=== PATIENT | female | born 1975 | race Two or more races ===

== ENCOUNTER 2020-12-07 00:15 | Emergency (ER) | payer OTHER, SELFPAY ==
[2020-12-07 00:45] VITALS: BP 135/89; PULSE 68; RESP 16; TEMP 36.1; O2SAT 69; BMI 40.7
--- NOTE | 2020-12-07 01:44 | ED.ALLEREA ---
HPI - Allergic Reaction General Chief complaint: Allergic Reaction Stated complaint: rash Time Seen by Provider: 12/07/20 01:28 Source: patient Mode of arrival: ambulatory Limitations: no limitations History of Present Illness HPI narrative: Patient is a 45-year-old female with no significant past medical history who presents with an itchy rash on her lower abdomen and upper left leg x3 days. She states the rash started yesterday morning when she woke up, she states she went to her PCP who gave her 40 mg of prednisone to take each day. She states she took the medication yesterday and today with no relief and states the rash is now spreading. She denies any tingling in her throat shortness of breath. she denies any new detergents lotions soaps clothing or sunscreen. she denies fevers. She states she took Benadryl on the 1st day but stopped taking it once her doctor prescribed prednisone. Related Data Previous Rx's Medication Instructions Recorded hydroxyzine HCl 25 mg PO TID PRN #20 tab 12/07/20 prednisone 50 mg PO DAILY 2 Days #2 tab 12/07/20 Allergies Allergy/AdvReac Type Severity Reaction Status Date / Time No Known Allergies Allergy Verified 12/07/20 00:45 Review of Systems Review of Systems: Yes all other systems are reviewed and are negative [facility] Past Medical History Surgical History H/O: hysterectomy Social History Social History Advance Directives: No Advance Directives Information Provided: No Physical Exam Vital Signs: Vital Signs: Last Vital Signs Temp 97 F 12/07/20 00:45 Pulse 68 12/07/20 00:45 Resp 16 12/07/20 00:45 BP 135/89 12/07/20 00:45 Pulse Ox 69 L 12/07/20 00:45 Body Mass Index 40.7 Const: General: cooperative, healthy appearing, comfortable and no acute distress Nutritional Appearance: average body habitus Orientation/consciousness: patient oriented x3 Eyes: General: appearance normal, both eyes and all related structures Resp: Effort & Inspection: normal respiratory effort and able to speak in complete sentences Auscultation: clear to auscultation bilaterally Skin: Other: large erythematous urticarial rash, patchy in areas, over Left lower quadrant, left hip extending in to upper left thigh Neuro: General: patient oriented x3 Course Course Course Narrative: will give additional prednisone, dose of p.o. Benadryl, p.o. hydroxyzine and p.o. Pepcid then reassess. Patient states her come pick her up if necessary, as I advised these medications may make her very sleepy. Reevaluation(s) Reevaluation #1: Per Dr Gonzalez, medicate patient and discharge home. Time: 02:07 Discharge Plan Discharge Clinical Impression: Urticaria Patient Disposition: Home, Self-Care Instructions: Urticaria (ED) Additional Instructions: You can take Benadryl and Zantac both of which are [id number] antihistamines. I have sent prescriptions for 2 more days of prednisone plus an anti-itch medication, hydroxyzine to your pharmacy. I have included other information in this packet on instructions to manage your itchy rash. If you have any tingling in the back your throat, feel like your short of breath or her lips or throat start swelling, please call 911 or return to the emergency department. The Prescriptions: New prednisone 50 mg tablet 50 mg PO DAILY 2 Days Qty: 2 RF: 0 hydroxyzine HCl 25 mg tablet 25 mg PO TID PRN (Reason: itching) Qty: 20 RF: 0
[2020-12-07] MEDS: diphenhydrAMINE HCL 25 MG TABLET PO (02:10)
[2020-12-07] MEDS: hydrOXYzine HCL 25 MG TABLET PO (02:10)
[2020-12-07] MEDS: Famotidine 20 MG TABLET PO (02:10)
[2020-12-07] MEDS: predniSONE 20 MG TABLET PO (02:10)
== END 2020-12-07 02:45 | disposition home or self-care (01) ==
PROVIDERS: Emergency Provider Internal Medicine; PCP Internal Medicine
DX: L50.9 Urticaria, unspecified (principal)
CPT/HCPCS: 99283; Q0163

== ENCOUNTER 2021-07-27 23:28 | Emergency (ER) | payer OTHER, SELFPAY ==
[2021-07-27 23:55] VITALS: BP 143/85; PULSE 77; RESP 16; TEMP 36.7; O2SAT 99; BMI 34.3
== END 2021-07-28 02:39 | disposition left against medical advice (07) ==
PROVIDERS: Emergency Provider Emergency Medicine
DX: H57.12 Ocular pain, left eye (principal)
CPT/HCPCS: 99282

== ENCOUNTER 2022-05-31 00:40 | Inpatient (IN) | payer OTHER, SELFPAY ==
[2022-05-31 00:47] VITALS: BP 166/103; PULSE 95; RESP 20; TEMP 36.9; O2SAT 98; BMI 29.6
--- NOTE | 2022-05-31 01:03 | ED.GENADULT ---
HPI - General Adult General Chief complaint: General Medical Stated complaint: red stool, abdominal pain Time Seen by Provider: 05/31/22 00:55 Source: patient Mode of arrival: ambulatory Limitations: no limitations History of Present Illness HPI narrative: 46-year-old female came in for evaluation of abdominal pain and bleeding per rectum. Patient's symptoms started about a week ago was seen and evaluated by PCP patient was instructed to monitor her symptoms and if gets worse to rule seek medical attention, patient is here today because been having abdominal pain, decreased appetite, and bright red blood in the stool. No fever, no chills. History of sleeve gastrectomy and appendectomy. Related Data Previous Rx's Medication Instructions Recorded hydroxyzine HCl 25 mg tablet 25 mg PO TID PRN itching #20 tabs 12/07/20 prednisone 50 mg tablet 50 mg PO DAILY 2 days #2 tabs 12/07/20 Allergies Allergy/AdvReac Type Severity Reaction Status Date / Time No Known Allergies Allergy Verified 12/07/20 00:45 Review of Systems Review of Systems: All other systems are reviewed and are negative Constitutional: Reports as per HPI and Reports no additional constitutional complaints Eyes: Reports as per HPI and Reports no additional eye complaints Reports system reviewed and no additional complaints, except as documented Cardiovascular: Reports as per HPI and Reports no additional cardiovascular complaints Respiratory: Reports as per HPI and Reports no additional respiratory complaints Gastrointestinal: Reports as per HPI and Reports no additional gastrointestinal complaints Genitourinary: Reports no additional female genitourinary complaints Musculoskeletal: Reports no additional musculoskeletal complaints Skin/Breast: Reports system reviewed and no additional complaints, except as docu Psychiatric: Reports no additional psychiatric complaints Endocrine: Reports no additional endocrine complaints Hematologic/Lymphatic: Reports no additional hematologic/lymphatic complaints Allergic/Immunologic: Reports no additional allergic/immunologic complaints Reports system reviewed and no additional complaints, except as documented and Reports Abnormal speech present [facility] Past Medical History Surgical History H/O: hysterectomy Social History Social History Advance Directives: No Physical Exam ED Vital Signs: Vital Signs - 24 hr 05/31/22 00:47 05/31/22 02:08 Temperature 98.4 F Pulse Rate 95 81 Respiratory Rate 20 16 Blood Pressure 166/103 H 122/84 Pulse Oximetry 98 100 Oxygen Delivery Method Room Air Room Air BMI result Body Mass Index 29.6 Vital signs have been reviewed as appeared to be correct. Blood pressure normal. Heart rate normal. Respiration rate normal. Temperature normal. Oxygen saturation normal. Appearance: Alert. Oriented X3. No acute distress. Head: Normal external exam. Normocephalic. Atraumatic. No Sprague signs noted. No raccoon eyes noted Eyes: PERRLA. EOMI. Conjunctiva and sclera normal. Eyelids normal. ENT: TM's Normal. Pharynx normal. Uvula midline. Moist mucous membranes. No trismus noted. No drooling noted. No muffled voice noted. Neck: Normal inspection. Neck supple. FROM. No adenopathy. Thyroid Normal. No meningeal signs. No neck mass noted. CVS: Normal heart rate and rhythm. Heart sound normal. No murmurs noted. Pulses normal throughout. Respiratory: No respiratory distress. Painless inspiration. Breath sounds normal. No wheezes/rales/rhonchi noted. Chest nontender. No accessory muscle usage noted or decreased air movement noted. Abdomen: Soft, diffuse abdominal discomfort with no guarding or rebound tenderness.. Bowel sounds normal in all 4 quadrants. No distention noted. No organomegaly noted. No visible injury noted. Back: No CVA tenderness. Full range of motion noted. Rectal exam: Bright red blood and mucus in the vault. Skin: Skin warm and dry. Normal skin color. Normal skin turgor. No rashes/lesions/lacerations noted. Extremities: No lower extremity edema. Extremities exhibit normal range of motion. Extremities nontender. Neuro: Oriented X 3. Cranial nerve exam: II-XII are grossly intact No motor deficit. No sensory deficit. Reflexes normal. Course Course Course Narrative: 46-year-old female came in for evaluation of abdominal pain and bloody bowel movement CT of the abdomen and pelvis is consistent with harkins colitis. Start the patient on Flagyl and levofloxacin seen will give 1 dose of Solu-Medrol admit for further GI evaluation. Hypokalemia will replete potassium IV/p.o.. Mild elevation of BUN/ creatinine likely from the diarrhea will hydrate Medical Decision Making Differential Diagnosis Differential Diagnoses: The differential diagnosis associated with the presentation includes (Abdominal pain, gastroenteritis, colitis, hemorrhoid, complicated diverticular disease.) Admission/Observation Consideration of admission/observation: Escalation of care including admission/observation considered Consult Healthcare Provider Management of the patient was discussed with: Hospitalist Lab Data MDM Lab Attestation statement: I reviewed the patient's lab results. Result Diagrams: 05/31/22 01:07 05/31/22 01:07 Labs: Lab Results 05/31/22 05/31/22 05/31/22 Range/Units 01:07 01:07 01:07 WBC 5.4 (4.8-10.8) X10*3/uL RBC 4.78 (4.20-5.50) X10*6/uL Hgb 13.4 (12.0-16.0) g/dl Hct 40.1 (37.0-47.0) % MCV 83.9 (80.0-98.0) fL MCH 28.0 (27.0-33.0) pg MCHC 33.4 (31.0-35.0) g/dl RDW 13.4 (11.0-16.0) % Plt Count 187 (160-400) X10*3/uL MPV 11.0 (9.4-12.3) fL Immature Gran % (Auto) 0.6 H (0.0-0.4) % Neut % (Auto) 41.4 L (45-73) % Lymph % (Auto) 38.0 (20-40) % Ness % (Auto) 18.1 H (2-11) % Eos % (Auto) 1.3 (0-4) % Baso % (Auto) 0.6 (0-2) % Lymph # (Auto) 2.0 (1.2-4.9) X10*3/uL Ness # (Auto) 1.0 (0.1-1.2) X10*3/uL Eos # (Auto) 0.1 (0.0-0.4) X10*3/uL Baso # (Auto) 0.0 (0.0-0.2) X10*3/uL Abs Immat Gran (auto) 0.03 (0.00-0.03) X10*3/uL Absolute Neuts (auto) 2.2 (2.0-8.3) x10*3/uL Absolute Nucleated RBC 0.000 (0.0-0.012) X10*3/uL Nucleated RBC % (auto) 0.0 (0.0-0.2) /100WBC PT (10.0-13.1) SEC INR (0.9-1.1) APTT (26.0-36.4) SEC Sodium 138 (135-145) mmol/L Potassium 3.1 L (3.3-5.1) mmol/L Chloride 102 (96-108) mmol/L Carbon Dioxide 25 (22-29) mmol/L Anion Gap 14 (12-20) BUN 21 H (9-16) mg/dL Creatinine 1.79 H (0.5-1.4) mg/dL Estim Creat Clear Calc 37.4 Estimated GFR 30 Random Glucose 108 (60-115) mg/dL Calcium 9.2 (8.4-10.2) mg/dL Total Bilirubin 0.3 (0.0-1.0) mg/dL AST 67 H (5-31) U/L ALT 189 H (0-31) U/L Alkaline Phosphatase 164 H (39-117) U/L Total Protein 6.9 (6.5-8.0) g/dL Albumin 4.1 (3.5-5.0) g/dL Beta HCG, Quant 3 mIU/mL Urine Color Urine Appearance Urine pH (5.0-9.0) Ur Specific [place] (1.005-1.025) Urine Protein (Neg-Trace) mg/dL Urine Glucose (UA) (Negative) mg/dL Urine Ketones (Negative) mg/dL Urine Blood (Negative) Urine Nitrite (Negative) Ur Leukocyte Esterase (Negative) Urine RBC (0-2) /HPF Urine WBC (0-5) /HPF Ur Squamous Epith Cells (0-2) /HPF Urine Bacteria (None Seen) Hyaline Casts (0-2) /LPF Stool Occult Blood (NEGATIVE) Influenza Type A (PCR) NEGATIVE (Negative) Influenza Type B (PCR) NEGATIVE (Negative) RSV RNA Qual (PCR) NEGATIVE (Negative) SARS-CoV-2 RNA (RT-PCR) NEGATIVE (Negative) 05/31/22 05/31/22 05/31/22 Range/Units 01:07 01:07 02:34 WBC (4.8-10.8) X10*3/uL RBC (4.20-5.50) X10*6/uL Hgb (12.0-16.0) g/dl Hct (37.0-47.0) % MCV (80.0-98.0) fL MCH (27.0-33.0) pg MCHC (31.0-35.0) g/dl RDW (11.0-16.0) % Plt Count (160-400) X10*3/uL MPV (9.4-12.3) fL Immature Gran % (Auto) (0.0-0.4) % Neut % (Auto) (45-73) % Lymph % (Auto) (20-40) % Ness % (Auto) (2-11) % Eos % (Auto) (0-4) % Baso % (Auto) (0-2) % Lymph # (Auto) (1.2-4.9) X10*3/uL Ness # (Auto) (0.1-1.2) X10*3/uL Eos # (Auto) (0.0-0.4) X10*3/uL Baso # (Auto) (0.0-0.2) X10*3/uL Abs Immat Gran (auto) (0.00-0.03) X10*3/uL Absolute Neuts (auto) (2.0-8.3) x10*3/uL Absolute Nucleated RBC (0.0-0.012) X10*3/uL Nucleated RBC % (auto) (0.0-0.2) /100WBC PT 11.9 (10.0-13.1) SEC INR 1.0 (0.9-1.1) APTT 26.4 (26.0-36.4) SEC Sodium (135-145) mmol/L Potassium (3.3-5.1) mmol/L Chloride (96-108) mmol/L Carbon Dioxide (22-29) mmol/L Anion Gap (12-20) BUN (9-16) mg/dL Creatinine (0.5-1.4) mg/dL Estim Creat Clear Calc Estimated GFR Random Glucose (60-115) mg/dL Calcium (8.4-10.2) mg/dL Total Bilirubin (0.0-1.0) mg/dL AST (5-31) U/L ALT (0-31) U/L Alkaline Phosphatase (39-117) U/L Total Protein (6.5-8.0) g/dL Albumin (3.5-5.0) g/dL Beta HCG, Quant mIU/mL Urine Color Yellow Urine Appearance Clear Urine pH 5.5 (5.0-9.0) Ur Specific [place] 1.010 (1.005-1.025) Urine Protein 30 (1+) H (Neg-Trace) mg/dL Urine Glucose (UA) Negative (Negative) mg/dL Urine Ketones Negative (Negative) mg/dL Urine Blood Negative (Negative) Urine Nitrite Negative (Negative) Ur Leukocyte Esterase Negative (Negative) Urine RBC 0-2 (0-2) /HPF Urine WBC 6-10 H (0-5) /HPF Ur Squamous Epith Cells 0-2 (0-2) /HPF Urine Bacteria None Seen (None Seen) Hyaline Casts 3-5 (0-2) /LPF Stool Occult Blood NEGATIVE (NEGATIVE) Influenza Type A (PCR) (Negative) Influenza Type B (PCR) (Negative) RSV RNA Qual (PCR) (Negative) SARS-CoV-2 RNA (RT-PCR) (Negative) Radiology Impression Discussion of test interpretation with radiology: I have reviewed the radiologist's reading. Discharge Plan Discharge Clinical Impression: Colitis, Bright red rectal bleeding, Acute hypokalemia, Dehydration Patient Disposition: Admitted As Inpatient
[2022-05-31 01:13] LABS: MANUAL DIFF FLAG NO
[2022-05-31 01:15] LABS: Basophils Percent Auto 0.6 % (0-2); Eosinophils Absolute Auto 0.1 X10*3/uL (0.0-0.4); Eosinophils Percent Auto 1.3 % (0-4); Hematocrit 40.1 % (37.0-47.0); Hemoglobin 13.4 g/dl (12.0-16.0); Imm Gran Abs Auto 0.03 X10*3/uL (0.00-0.03); Imm Gran Pct Auto 0.6 % (0.0-0.4); Mean Corpuscular HGB Conc 33.4 g/dl (31.0-35.0); Mean Corpuscular Volume 83.9 fL (80.0-98.0); Monocytes Percent Auto 18.1 % (2-11); Neutrophils Absolute Auto 2.2 x10*3/uL (2.0-8.3); Neutrophils Percent Auto 41.4 % (45-73); Platelet Count 187 X10*3/uL (160-400); Red Blood Count 4.78 X10*6/uL (4.20-5.50); Red Cell Distribution Width 13.4 % (11.0-16.0); White Blood Count 5.4 X10*3/uL (4.8-10.8)
[2022-05-31 01:16] LABS: OBS Int Ctl Valid YES; OBS1 NEGATIVE (NEGATIVE)
[2022-05-31 01:20] LABS: Prothrombin Time 11.9 SEC (10.0-13.1)
[2022-05-31 01:23] LABS: Partial Thromboplastin Time 26.4 SEC (26.0-36.4)
[2022-05-31 01:31] LABS: Alanine Aminotransferase 189 U/L (0-31); Albumin Level 4.1 g/dL (3.5-5.0); Alkaline Phosphatase 164 U/L (39-117); Anion Gap 14 (12-20); Aspartate Amino Transferase 67 U/L (5-31); Bilirubin Total 0.3 mg/dL (0.0-1.0); Blood Urea Nitrogen 21 mg/dL (9-16); Calcium 9.2 mg/dL (8.4-10.2); Carbon Dioxide 25 mmol/L (22-29); Chloride 102 mmol/L (96-108); Creatinine Clr Calc Pharmacy 37.4; Estimated Glomerular Filt Rate 30; Glucose Random 108 mg/dL (60-115); Potassium 3.1 mmol/L (3.3-5.1); Sodium 138 mmol/L (135-145); Total Protein 6.9 g/dL (6.5-8.0)
[2022-05-31 01:51] LABS: Influenza A PCR NEGATIVE (Negative); Influenza B PCR NEGATIVE (Negative); Resp Syncy Virus RNA Qual PCR NEGATIVE (Negative); SARS COV2 PCR INHOUSE NEGATIVE (Negative)
[2022-05-31 01:59] LABS: HCG Quantitative 3 mIU/mL
[2022-05-31 02:08] VITALS: BP 122/84; PULSE 81; RESP 16; O2SAT 100
[2022-05-31 02:41] LABS: Appearance Urine Clear; Color Urine Yellow; Glucose Urine UA Negative (Negative); Leukocyte Esterase Urine Negative (Negative); Nitrite Urine Negative (Negative); PH 5.5 (5.0-9.0); UMIC TRIGGER UACC YES; Urine Blood Negative (Negative); Urine Ketones Negative (Negative); Urine Protein 30 (1+) mg/dL (Neg-Trace)
[2022-05-31 03:08] LABS: Bacteria Urine None Seen (None Seen); RBC Urine 0-2 /HPF (0-2); Squamous Epithelial Cell Urine 0-2 /HPF (0-2); UACC Culture Trigger YES
[2022-05-31 03:49] LABS: Lactic Acid 0.8 mmol/L (0.5-2.0)
[2022-05-31 05:21] VITALS: BP 122/85; PULSE 78; RESP 16; TEMP 36.8; O2SAT 98
--- NOTE | 2022-05-31 06:05 | PM.IMHP ---
History of Present Illness Date of Service: 05/31/22 Chief Complaint: abdominal pain, diarrhea this is a 38-year-old female with no significant past medical history who presents to the hospital with complaints of abdominal pain as well as significant diarrhea for the past 4 days. Patient reports that her symptoms started Wednesday, she had multiple episode of diarrhea that has now turned into watery bowel movements. Patient reports that today she noticed blood in in the diarrhea therefore was concerned and presented to the ED. Patient reports no fever but has chills, reports no nausea or vomiting, denies any urinary symptoms and no lower extremity edema. Patient reports a history of colitis in her sister. Reports no previous similar episode. Denies any history of inflammatory bowel disease. patient reports that she underwent colonoscopy about 5 months ago because she has family history of colon cancer, at that time her colonoscopy showed mild inflammation with no other significant findings On arrival to the ED patient hemodynamically stable with no significant abnormal vitals except slightly elevated blood pressure that not normalize Labs are significant for WBC count of 5.4, creatinine of 1.79, AST of 67, ALT of 189, alk-phos of 164, UA negative for acute infection, viral serology negative Abdominal pelvic CT shows thick-walled appearance of the collapse ascending descending and transverse colon with surrounding stranding suspicious for pancolitis. There also may be mild thickening of the sigmoid colon. Review of Systems Review of Systems: Yes all other systems are reviewed and are negative [facility] Surgical History (Updated 05/31/22 @ 06:12 by Craig Posadas MD) H/O abdominoplasty H/O: hysterectomy History of cholecystectomy History of sleeve gastrectomy Social History (Updated 05/31/22 @ 06:12 by Craig Posadas MD) Alcohol intake: current Patient Tobacco Use Status: Never used Tobacco Use of substances other than those prescribed or required for medical reasons: No Advance Directives: No Meds Allergies Allergy/AdvReac Type Severity Reaction Status Date / Time No Known Allergies Allergy Verified 12/07/20 00:45 Active Medications: Current Medications Acetaminophen (Acetaminophen 325 Mg Tablet) 650 mg PO Q6H PRN PRN Reason: Pain, Mild (Pain Scale 1-3) Ceftriaxone Sodium 1 gm/ (Sodium Chloride) 50 mls @ 100 mls/hr IV Q24H JAIMEE Metronidazole (Flagyl) 500 mg in 100 mls @ 100 mls/hr IV Q8H JAIMEE Lactated Ringer's (Lr) 1,000 mls @ 100 mls/hr IVCONT .Q10H JAIMEE Ondansetron HCl (Ondansetron Hcl 4 Mg/2 Ml Vial) 4 mg IVPUSH Q8H PRN PRN Reason: Nausea and Vomiting Oxycodone HCl (Oxycodone Hcl Immed Release 5 Mg Tablet) 5 mg PO Q6H PRN PRN Reason: Pain, Severe (Pain Scale 7-10) Sodium Chloride (0.9 % Sodium Chloride Flush 3 Ml Syringe) 3 ml IVFLUSH QSHIFT [facility] Home Medications Medication Instructions Recorded Confirmed Last Taken Type cholecalciferol (vitamin D3) 50 1 cap PO DAILY 05/31/22 05/31/22 Unknown History mcg (2,000 unit) capsule minoxidil 2.5 mg tablet tab PO 05/31/22 Unknown History pantoprazole 40 mg tablet,delayed 1 tab PO DAILY 05/31/22 05/31/22 Unknown History release paroxetine HCl 10 mg tablet 1 tab PO DAILY 05/31/22 05/31/22 Unknown History Physical Exam Vital Signs and Narrative: Vital Signs: Last Vital Signs Temp 98.2 F 05/31/22 05:21 Pulse 78 05/31/22 05:21 Resp 16 05/31/22 05:21 BP 122/85 05/31/22 05:21 Pulse Ox 98 05/31/22 05:21 O2 Del Method 05/31/22 05:21 BMI result Body Mass Index 29.6 Results Labs CBC and Chem 7: 05/31/22 01:07 05/31/22 01:07 Labs: Laboratory Results - last 24 hr 05/31/22 05/31/22 05/31/22 01:07 01:07 01:07 MCV 83.9 MCH 28.0 MCHC 33.4 RDW 13.4 Plt Count 187 MPV 11.0 Immature Gran % (Auto) 0.6 H Neut % (Auto) 41.4 L Lymph % (Auto) 38.0 Placer % (Auto) 18.1 H Eos % (Auto) 1.3 Baso % (Auto) 0.6 Lymph # (Auto) 2.0 Placer # (Auto) 1.0 Eos # (Auto) 0.1 Baso # (Auto) 0.0 Abs Immat Gran (auto) 0.03 Absolute Neuts (auto) 2.2 Absolute Nucleated RBC 0.000 Nucleated RBC % (auto) 0.0 PT INR APTT Anion Gap 14 Estim Creat Clear Calc 37.4 Estimated GFR 30 Random Glucose 108 Lactic Acid Calcium 9.2 Total Bilirubin 0.3 AST 67 H ALT 189 H Alkaline Phosphatase 164 H Total Protein 6.9 Albumin 4.1 Beta HCG, Quant 3 Urine Color Urine Appearance Urine pH Ur Specific [place] Urine Protein Urine Glucose (UA) Urine Ketones Urine Blood Urine Nitrite Ur Leukocyte Esterase Urine RBC Urine WBC Ur Squamous Epith Cells Urine Bacteria Hyaline Casts Stool Occult Blood Influenza Type A (PCR) NEGATIVE Influenza Type B (PCR) NEGATIVE RSV RNA Qual (PCR) NEGATIVE SARS-CoV-2 RNA (RT-PCR) NEGATIVE 05/31/22 05/31/22 05/31/22 01:07 01:07 02:34 MCV MCH MCHC RDW Plt Count MPV Immature Gran % (Auto) Neut % (Auto) Lymph % (Auto) [place] % (Auto) Eos % (Auto) Baso % (Auto) Lymph # (Auto) Placer # (Auto) Eos # (Auto) Baso # (Auto) Abs Immat Gran (auto) Absolute Neuts (auto) Absolute Nucleated RBC Nucleated RBC % (auto) PT 11.9 INR 1.0 APTT 26.4 Anion Gap Estim Creat Clear Calc Estimated GFR Random Glucose Lactic Acid Calcium Total Bilirubin AST ALT Alkaline Phosphatase Total Protein Albumin Beta HCG, Quant Urine Color Yellow Urine Appearance Clear Urine pH 5.5 Ur Specific [place] 1.010 Urine Protein 30 (1+) H Urine Glucose (UA) Negative Urine Ketones Negative Urine Blood Negative Urine Nitrite Negative Ur Leukocyte Esterase Negative Urine RBC 0-2 Urine WBC 6-10 H Ur Squamous Epith Cells 0-2 Urine Bacteria None Seen Hyaline Casts 3-5 Stool Occult Blood NEGATIVE Influenza Type A (PCR) Influenza Type B (PCR) RSV RNA Qual (PCR) SARS-CoV-2 RNA (RT-PCR) 05/31/22 03:30 MCV MCH MCHC RDW Plt Count MPV Immature Gran % (Auto) Neut % (Auto) Lymph % (Auto) [place] % (Auto) Eos % (Auto) Baso % (Auto) Lymph # (Auto) Placer # (Auto) Eos # (Auto) Baso # (Auto) Abs Immat Gran (auto) Absolute Neuts (auto) Absolute Nucleated RBC Nucleated RBC % (auto) PT INR APTT Anion Gap Estim Creat Clear Calc Estimated GFR Random Glucose Lactic Acid 0.8 Calcium Total Bilirubin AST ALT Alkaline Phosphatase Total Protein Albumin Beta HCG, Quant Urine Color Urine Appearance Urine pH Ur Specific [place] Urine Protein Urine Glucose (UA) Urine Ketones Urine Blood Urine Nitrite Ur Leukocyte Esterase Urine RBC Urine WBC Ur Squamous Epith Cells Urine Bacteria Hyaline Casts Stool Occult Blood Influenza Type A (PCR) Influenza Type B (PCR) RSV RNA Qual (PCR) SARS-CoV-2 RNA (RT-PCR) Imaging Radiologist's Impressions: Impressions Abdomen/Pelvis CT 05/31/22 02:05 IMPRESSION: 1. Thick-walled appearance of the collapsed ascending, descending, and transverse colon with surrounding stranding suspicious for colitis. There may also be mild thickening of the sigmoid colon. 2. Status post cholecystectomy with mild biliary ductal dilatation which may be physiologic in this setting. Assessment and Plan (1) Colitis: Status: Acute (2) Bright red rectal bleeding: Status: Acute (3) Acute hypokalemia: Status: Acute (4) Dehydration: Status: Acute (5) TU (acute kidney injury): Status: Acute Plan 46-year-old female with no significant past medical history presents to the hospital with complaints of abdominal pain as well as diarrhea found to have acute colitis # acute colitis - has evidence of pancolitis - no personal history of inflammatory bowel disease - likely viral versus inflammatory - will treat with IV antibiotics - consult GI, will likely require repeat colonoscopy # bright red blood per rectum - likely secondary to colitis - hemoglobin stable - follow CBC # acute hypokalemia - repleted - follow BMP # dehydration /TU - secondary to diarrhea - IV fluid - follow BMP DVT prophylaxis: Early ambulation Given patient's acute colitis requiring IV antibiotics as well as TU requiring IV fluids patient requires a minimum 2 nights inpatient hospital stay for further management and monitoring Time Spent With Patient Time: Total time managing care of this patient today ____ minutes. Quality Stroke Does the patient have a stroke diagnosis?: No VTE Prior VTE?: No VTE Risk Level:: Medical - low VTE Device Contraindication: Treatment Not Indicated VTE Drug Contraindication: Treatment Not Indicated
[2022-05-31 06:37] LABS: Hematocrit 35.7 % (37.0-47.0); Hemoglobin 12.2 g/dl (12.0-16.0); Mean Corpuscular HGB Conc 34.2 g/dl (31.0-35.0); Mean Corpuscular Hemoglobin 28.4 pg (27.0-33.0); Mean Corpuscular Volume 83.2 fL (80.0-98.0); Mean Platelet Volume 11.2 fL (9.4-12.3); Platelet Count 154 X10*3/uL (160-400); Red Blood Count 4.29 X10*6/uL (4.20-5.50); Red Cell Distribution Width 13.5 % (11.0-16.0); White Blood Count 2.6 X10*3/uL (4.8-10.8)
[2022-05-31 06:38] LABS: Anion Gap 12 (12-20); Blood Urea Nitrogen 16 mg/dL (9-16); Calcium 8.7 mg/dL (8.4-10.2); Carbon Dioxide 21 mmol/L (22-29); Chloride 110 mmol/L (96-108); Creatinine Clr Calc Pharmacy 52.8; Estimated Glomerular Filt Rate 45; Glucose Random 116 mg/dL (60-115); Potassium 4.3 mmol/L (3.3-5.1); Sodium 139 mmol/L (135-145)
[2022-05-31 07:14] LABS: Band Neutrophils Percent 2 % (3-5); Large Platelet PRESENT; Lymphocytes Percent Manual 37 % (20-40); Monocytes Absolute Manual 0.1 X10*3/uL (0.1-1.2); Monocytes Percent Manual 2 % (2-11); Neutrophils Absolute Manual 1.6 X10*3/uL (2.0-8.3); Neutrophils Percent Manual 59 % (45-73); Platelet Estimate NORMAL (NORMAL); Platelet Morphology Comment NOTED; RBC Morphology NORMAL
--- NOTE | 2022-05-31 07:55 | PC.NURSE ---
pt tolerating clear liquids this am. Offers no complaints.
[2022-05-31 08:50] LABS: C Reactive Protein 12.39 mg/dL (< or = 0.50)
--- NOTE | 2022-05-31 09:31 | PHA.MEDREC ---
Pharmacy Consult ? Medication Reconciliation Pharmacy has completed the medication reconciliation. Spoke to patient because I noticed differences in the med rec that was entered by overnight nurse and the patient claim history. Was able to clarify minoxidil dosing is 1/2 tablet daily and she also is bariatric surgery patient taking a bariatric multivitamin and citracal daily. Messaged md to make aware of change to home medication list.
--- NOTE | 2022-05-31 10:58 | PM.EVENT ---
Event Note Date of Service: 05/31/22 Event Note: Day hospitalist update S: 2 episodes bloody diarrhea No recent travel/high-risk food exposures Took amoxicillin 1-2 mo ago for strep throat No abd pain or fever O: Temp Pulse Resp BP Pulse Ox O2 Del Method 98.2 F 78 16 122/85 98 05/31/22 05:21 05/31/22 05:21 05/31/22 05:21 05/31/22 05:21 05/31/22 05:21 05/31/22 05:21 Gen: in no acute distress HEENT: sclera anicteric, moist mucus membranes Neck: supple Lungs: clear to auscultation bilaterally Heart: regular rate and rhythm, no murmurs Abd: soft, non-tender, non-distended Ext: no edema Skin: warm/well-perfused Neuro: alert and oriented x3, no focal findings Psych: appropriate affect A/P: hospital day#1 46yo with hx bariatric surgery presenting with 5d of watery, then bloody diarrhea, found to have pancolitis # colitis - send stool for calprotectin, WBCs, C. difficile, and GI panel - ceftriaxone + metronidazole d#1 - GI consultation - trend CRP # hypoK - resolved # TU, prerenal - resolved # transaminasemia - repeat LFTs, screen for HBV/HCV # mood disorder - paroxetine # VTE ppx: SCDs In my clinical judgment, the patient requires continued hospitalization for the following reasons: IV ABX Time Spent With Patient Time: Total time managing care of this patient today ____ minutes.
--- NOTE | 2022-05-31 11:31 | P.CNGI_ITS ---
History of Present Illness Data of Consult Service Date: 05/31/22 Requesting physician: Craig Posadas Primary Care Provider: Rock Chambers MD [facility] Reason for consult: Pancolitis This is a 38-year-old female past medical history of sleeve gastrectomy, hysterectomy, cholecystectomy, who presented to the hospital for acute onset of abdominal pain and diarrhea. History was obtained from the patient, who states that had sudden onset of abdominal cramping with nausea, dry heaving, diarrhea and chills. 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 Had
--- NOTE | 2022-05-31 11:31 | PM.GICN ---
History of Present Illness Data of Consult Service Date: 05/31/22 Requesting physician: Craig Posadas Primary Care Provider: Rock Chambers MD [facility] Reason for consult: Pancolitis This is a 38-year-old female past medical history of sleeve gastrectomy, hysterectomy, cholecystectomy, who presented to the hospital for acute onset of abdominal pain and diarrhea. History was obtained from the patient, who states that around 5 days ago, she had sudden onset of abdominal cramping with nausea, dry heaving, diarrhea and chills. 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 Had been managing this at home by pushing fluids and staying on clear liquid diet. She also took ibuprofen 3200 mg/day for 1-2 days. Following that on Wednesday evening, her cramping got significantly worse. She passed 2-3 stools with Jell-O consistency of maroon blood. This was scant (patient showed me a picture) but prompted her visit to the emergency room. On arrival to the hospital, patient was noted to be vitally stable. Labs were significant for acute kidney injury with creatinine of 1.7 and hypokalemia. CRP was 12.39. Flu and RSV panel was negative. CT abdomen and pelvis without contrast showed possibly thickened colon wall. Patient reports no baseline gastrointestinal complaints. She had a screening colonoscopy 6 months ago at [facility] which was normal except for some polyps. No family history of colon cancer in first-degree relatives. Tells me that the cassidy-blood started clearing up after the 3rd loose bowel movement. Her abdominal cramping has also improved significantly. Describes reduce frequency of her loose stools. No further nausea or chills. Review of Systems Review of Systems: Yes all other systems are reviewed and are negative [facility] Surgical History Surgical History (Updated 05/31/22 @ 06:12 by Craig Posadas MD) H/O abdominoplasty H/O: hysterectomy History of cholecystectomy History of sleeve gastrectomy Social History Social History (Updated 05/31/22 @ 06:12 by Craig Posadas MD) Alcohol intake: current Patient Tobacco Use Status: Never used Tobacco Use of substances other than those prescribed or required for medical reasons: No Advance Directives: No Meds Allergies Allergy/AdvReac Type Severity Reaction Status Date / Time No Known Allergies Allergy Verified 12/07/20 00:45 Active Medications: Current Medications Acetaminophen (Acetaminophen 325 Mg Tablet) 650 mg PO Q6H PRN PRN Reason: Pain, Mild (Pain Scale 1-3) Ceftriaxone Sodium 1 gm/ (Sodium Chloride) 50 mls @ 100 mls/hr IV Q24H [facility] Last Infusion: 05/31/22 07:15 Dose: Infused Metronidazole (Flagyl) 500 mg in 100 mls @ 100 mls/hr IV Q8H [facility] Last Admin: 05/31/22 11:00 Dose: 100 mls/hr Lactated Ringer's (Lr) 1,000 mls @ 100 mls/hr IVCONT .Q10H [facility] Last Admin: 05/31/22 08:12 Dose: 100 mls/hr Minoxidil (Minoxidil 2.5 Mg Tablet) 1.25 mg PO DAILY [facility] Non-Formulary Medication (Qwvetdldwugd-Qqq-Wurb-Fa-Vit K [Bariatric Multivitamins]) 1 cap PO BEDTIME [facility] Omeprazole (Omeprazole 20 Mg Capsule.Dr) 20 mg PO DAILY@0630 [facility] Last Admin: 05/31/22 10:14 Dose: 20 mg Ondansetron HCl (Ondansetron Hcl 4 Mg/2 Ml Vial) 4 mg IVPUSH Q8H PRN PRN Reason: Nausea and Vomiting Oxycodone HCl (Oxycodone Hcl Immed Release 5 Mg Tablet) 5 mg PO Q6H PRN PRN Reason: Pain, Severe (Pain Scale 7-10) Paroxetine HCl (Paroxetine Hcl 10 Mg Tablet) 10 mg PO DAILY [facility] Sodium Chloride (0.9 % Sodium Chloride Flush 3 Ml Syringe) 3 ml IVFLUSH QSHIFT [facility] Last Admin: 05/31/22 08:01 Dose: Not Given Vitamin D (Cholecalciferol (Vitamin D3) 25 Mcg Tablet) 50 mcg PO DAILY [facility] Last Admin: 05/31/22 10:14 Dose: 50 mcg Home Medications Medication Instructions Recorded Confirmed Last Taken Type calcium carb,cit ER 600 mg-vit D3 1 tab PO BEDTIME 05/31/22 05/31/22 05/28/22 History 12.5 mcg (500 unit) tablet,ext.rel (Citracal-D3 Slow Release) cholecalciferol (vitamin D3) 50 50 mcg PO DAILY 05/31/22 05/31/22 05/28/22 History mcg (2,000 unit) capsule minoxidil 2.5 mg tablet 1.25 mg PO DAILY 05/31/22 05/31/22 05/28/22 History oucmncdh-twnovugq-lfsc 45 mg-folic 1 cap PO BEDTIME 05/31/22 05/31/22 05/28/22 History acid 800 mcg-vit K 120 mcg capsule (Bariatric Multivitamins) pantoprazole 40 mg tablet,delayed 40 mg PO DAILY 05/31/22 05/31/22 05/28/22 History release paroxetine HCl 10 mg tablet 10 mg PO DAILY 05/31/22 05/31/22 05/28/22 History Physical Exam Vital Signs: Vital Signs: Last Vital Signs Temp 98.2 F 05/31/22 05:21 Pulse 78 05/31/22 05:21 Resp 16 05/31/22 05:21 BP 122/85 05/31/22 05:21 Pulse Ox 98 05/31/22 05:21 O2 Del Method 05/31/22 05:21 BMI result Body Mass Index 29.6 Gen appear: No acute distress, well nourished HEENT: no icterus, no cervical lymphadenopathy Chest: No overt resp distress CVS: S1/S2, regular Abd: soft, mild tender in lower right and left quadrants, nondistended Psych: Stable affect, answering questions appropriately Neuro: A/Ox3 noted to move all extremities spontaneously Ext: no peripheral edema Results Labs CBC & Chem 7: 05/31/22 06:15 05/31/22 06:15 Labs: Short CBC 05/31/22 05/31/22 Range/Units 01:07 06:15 WBC 5.4 2.6 L (4.8-10.8) X10*3/uL Hgb 13.4 12.2 (12.0-16.0) g/dl Hct 40.1 35.7 L (37.0-47.0) % Plt Count 187 154 L (160-400) X10*3/uL BMP 05/31/22 05/31/22 01:07 06:15 Sodium 138 139 Potassium 3.1 L 4.3 D Chloride 102 110 H Carbon Dioxide 25 21 L BUN 21 H 16 Creatinine 1.79 H 1.27 Calcium 9.2 8.7 Liver Function 05/31/22 Range/Units 01:07 Total Bilirubin 0.3 (0.0-1.0) mg/dL AST 67 H (5-31) U/L ALT 189 H (0-31) U/L Alkaline Phosphatase 164 H (39-117) U/L Albumin 4.1 (3.5-5.0) g/dL Urine 05/31/22 Range/Units 02:34 Urine Color Yellow Urine Appearance Clear Urine pH 5.5 (5.0-9.0) Ur Specific [place] 1.010 (1.005-1.025) Urine Protein 30 (1+) H (Neg-Trace) mg/dL Urine Glucose (UA) Negative (Negative) mg/dL Assessment and Plan (1) Acute diarrhea: Status: Acute (2) Colitis: Status: Acute (3) Bright red rectal bleeding: Status: Acute Plan Overall presentation consistent with infectious gastroenteritis. Small volume of self-limiting bleeding likely due to dysentery vs NSAID induced. Given a normal colonoscopy 6 months ago, chronic colitis such as Crohn's or ulcerative colitis less likely. Malignancy also less likely due to above. - Overall trajectory is reassuring, patient has already improved significantly. - Agree with checking GI panel and C diff - Antibiotics not indicated for acute infectious diarrhea, especially as E Coli illness not ruled out yet - Advanced diet as tolerated. Thank you for allowing me to participate in her care. Please to not hesitate to reach out for any questions or concerns. Time Spent With Patient Time: Total time managing care of this patient today ____ minutes. Procedures Date of Service Date of Service: 05/31/22
[2022-05-31 14:08] LABS: OBS Int Ctl Valid YES; OBS1 POSITIVE (NEGATIVE)
[2022-05-31 14:23] VITALS: BP 112/64; PULSE 67; RESP 17; TEMP 35.9; O2SAT 97
--- NOTE | 2022-05-31 14:34 | MHC.CM.PN ---
CM MET WITH PT. LIVES WITH SON AND FRIEND IN A SINGLE FAMILY HOME. NO SERVICES OR DME PRIOR. INDEPENDENT AND EMPLOYED. +HCP AT HOME, COVID VAX X [address] GOMES AT [facility]. DP: HOME, NO SERVICES ANTICIPATED, FAMILY WILL TRANSPORT
[2022-05-31 14:46] LABS: Leukocytes Stool Qualitative FEW: < 2/OIF (NEGATIVE)
[2022-05-31 15:05] LABS: CDiff Gene PCR NEGATIVE (Negative)
[2022-05-31 15:39] LABS: Adenovirus F 40/41 Not Detected (Not Detect.); Astrovirus Not Detected (Not Detect.); Campylobacter Detected (Not Detect.); Cryptosporidium Not Detected (Not Detect.); Cyclospora cayetanensis Not Detected (Not Detect.); E. coli EAEC Not Detected (Not Detect.); E. coli EPEC Not Detected (Not Detect.); E. coli ETEC Not Detected (Not Detect.); E. coli STEC Not Detected (Not Detect.); Entamoeba histolytica Not Detected (Not Detect.); Giardia lamblia Not Detected (Not Detect.); Norovirus GI/GII Not Detected (Not Detect.); Plesiomonas shigelloides Not Detected (Not Detect.); Rotavirus A Not Detected (Not Detect.); Salmonella Not Detected (Not Detect.); Sapovirus Not Detected (Not Detect.); Shigella sp./EIEC Not Detected (Not Detect.); Vibrio Not Detected (Not Detect.); Vibrio Cholerae Not Detected (Not Detect.); Yersinia enterocolitica Not Detected (Not Detect.)
[2022-05-31 16:00] VITALS: BP 128/73; PULSE 73; RESP 16; TEMP 36.4; O2SAT 97
[2022-05-31 19:45] VITALS: BP 126/74; PULSE 71; RESP 16; TEMP 36.8; O2SAT 98
[2022-06-01 03:25] VITALS: BP 125/70; PULSE 69; RESP 16; TEMP 36.4; O2SAT 98
[2022-06-01 06:33] LABS: Hematocrit 34.1 % (37.0-47.0); Hemoglobin 11.3 g/dl (12.0-16.0); Mean Corpuscular HGB Conc 33.1 g/dl (31.0-35.0); Mean Corpuscular Hemoglobin 27.8 pg (27.0-33.0); Mean Corpuscular Volume 83.8 fL (80.0-98.0); Mean Platelet Volume 11.8 fL (9.4-12.3); Platelet Count 183 X10*3/uL (160-400); Red Blood Count 4.07 X10*6/uL (4.20-5.50); Red Cell Distribution Width 13.5 % (11.0-16.0); White Blood Count 5.7 X10*3/uL (4.8-10.8)
[2022-06-01 06:44] LABS: Alanine Aminotransferase 99 U/L (0-31); Albumin Level 3.4 g/dL (3.5-5.0); Alkaline Phosphatase 110 U/L (39-117); Anion Gap 10 (12-20); Aspartate Amino Transferase 24 U/L (5-31); Bilirubin Total 0.2 mg/dL (0.0-1.0); Blood Urea Nitrogen 11 mg/dL (9-16); Calcium 9.3 mg/dL (8.4-10.2); Carbon Dioxide 26 mmol/L (22-29); Chloride 110 mmol/L (96-108); Creatinine Clr Calc Pharmacy 88.2; Estimated Glomerular Filt Rate > 60; Glucose Random 98 mg/dL (60-115); Potassium 3.6 mmol/L (3.3-5.1); Sodium 142 mmol/L (135-145); Total Protein 5.6 g/dL (6.5-8.0)
[2022-06-01 08:00] VITALS: BP 114/66; PULSE 56; RESP 16; TEMP 36.8; O2SAT 99
--- NOTE | 2022-06-01 09:38 | MHC.CM.PN ---
HOME TODAY - SELF CARE
--- NOTE | 2022-06-01 13:24 | PM.DS ---
DS: Providers Provider Date of Service: 06/01/22 Date of admission: 05/31/22 04:07 Date of discharge: 06/01/22 Primary care physician: Rock Chambers MD Consults: 05/31/22 04:06 Consult to Gastroenterology Routine Consulting Provider: Alida Aguilar Reason for consultation: pancolitis,ibd? Has provider been notified: No DS: Diagnosis Discharge Diagnosis (1) Colitis: Status: Acute (2) Bright red rectal bleeding: Status: Acute (3) Campylobacter gastrointestinal tract infection: Status: Acute (4) TU (acute kidney injury): Status: Acute (5) Acute hypokalemia: Status: Acute (6) Transaminasemia: Status: Acute DS: Summary Hospital Course Hospital Course: from admission H+P by hospitalist Craig Posadas MD, 05/31/22: this is a 38-year-old female with no significant past medical history who presents to the hospital with complaints of abdominal pain as well as significant diarrhea for the past 4 days.? Patient reports that her symptoms started Wednesday, she had multiple episode of diarrhea that has now turned into watery bowel movements.? Patient reports that today she noticed blood in in the diarrhea therefore was concerned and presented to the ED. Patient reports no fever but has chills, reports no nausea or vomiting, denies any urinary symptoms and no lower extremity edema.? Patient reports a history of colitis in her sister.? Reports no previous similar episode.? Denies any history of inflammatory bowel disease.? ?patient reports that she underwent colonoscopy about 5 months ago because? she has family history of colon cancer, at that time her colonoscopy showed mild inflammation with no? other significant findings On arrival to the ED patient hemodynamically stable with no significant abnormal vitals except slightly elevated blood pressure that not normalize Labs are significant for? WBC count of 5.4, creatinine of 1.79, AST of 67, ALT of 189, alk-phos of 164, UA negative for acute infection, viral serology negative Abdominal pelvic CT shows thick-walled appearance of the collapse ascending descending and transverse colon with surrounding stranding suspicious for pancolitis.? There also may be mild thickening of the sigmoid colon. 46yo with hx bariatric surgery presenting with 5d of watery, then bloody diarrhea, found to have pancolitis. Patient was admitted to Medical/Surgical unit on ceftriaxone and metronidazole. Gastroenterology consulted: Overall presentation consistent with infectious gastroenteritis.? Small volume of self-limiting bleeding likely due to dysentery vs NSAID induced.? Given a normal colonoscopy 6 months ago, chronic colitis such as Crohn's or ulcerative colitis less likely.? Malignancy also less likely due to above. Stool testing was positive for campylobacter. Antibiotics were switched to azithromycin 500 mg daily x 3 days, 2 of which she completed in the hospital. Diet was advanced. TU and hypokalemia resolved with IV fluid/electrolyte repletion. Transaminasemia likely due to the campylobacterosis and improved with treatment, though HBV/HCV serologies are pending at the time of discharge. Hematocheiza resolved and diarrhea improved and she tolerated a regular diet. She was discharged home. Time Spent with Patient Time attestation: Total time managing care of this patient today __32__ minutes. Discharge coordination time: Greater than 30 minutes Quality: Safe Use of Opioids Does Pt have an Active Cancer Diagnosis on the Problem List?: No Quality: Stroke Does the patient have a stroke diagnosis?: No Physical Exam Vital Signs: Vital Signs: Last Vital Signs Temp 98.2 F 06/01/22 08:00 Pulse 56 06/01/22 08:00 Resp 16 06/01/22 08:00 BP 114/66 06/01/22 08:00 Pulse Ox 99 06/01/22 08:00 O2 Del Method 06/01/22 08:00 BMI result Body Mass Index 29.6 Gen: in no acute distress HEENT: sclera anicteric, moist mucus membranes Neck: supple Lungs: clear to auscultation bilaterally Heart: regular rate and rhythm, no murmurs Abd: soft, non-tender, non-distended Ext: no edema Skin: warm/well-perfused Neuro: alert and oriented x3, no focal findings Psych: appropriate affect DS: Data Data Completed and Pending Completed studies during hospitalization [Text1]: Laboratory Results WBC 5.7 X10*3/uL (4.8-10.8) 06/01/22 05:46 RBC 4.07 X10*6/uL (4.20-5.50) L 06/01/22 05:46 Hgb 11.3 g/dl (12.0-16.0) L 06/01/22 05:46 Hct 34.1 % (37.0-47.0) L 06/01/22 05:46 MCV 83.8 fL (80.0-98.0) 06/01/22 05:46 MCH 27.8 pg (27.0-33.0) 06/01/22 05:46 MCHC 33.1 g/dl (31.0-35.0) 06/01/22 05:46 RDW 13.5 % (11.0-16.0) 06/01/22 05:46 Plt Count 183 X10*3/uL (160-400) 06/01/22 05:46 MPV 11.8 fL (9.4-12.3) 06/01/22 05:46 Immature Gran % (Auto) Cancelled 05/31/22 06:15 Neut % (Auto) Cancelled 05/31/22 06:15 Lymph % (Auto) Cancelled 05/31/22 06:15 [place] % (Auto) Cancelled 05/31/22 06:15 Eos % (Auto) Cancelled 05/31/22 06:15 Baso % (Auto) Cancelled 05/31/22 06:15 Lymph # (Auto) Cancelled 05/31/22 06:15 [place] # (Auto) Cancelled 05/31/22 06:15 Eos # (Auto) Cancelled 05/31/22 06:15 Baso # (Auto) Cancelled 05/31/22 06:15 Abs Immat Gran (auto) Cancelled 05/31/22 06:15 Absolute Neuts (auto) Cancelled 05/31/22 06:15 Absolute Nucleated RBC 0.000 X10*3/uL (0.0-0.012) 06/01/22 05:46 Nucleated RBC % (auto) 0.0 /100WBC (0.0-0.2) 06/01/22 05:46 Neutrophils % (Manual) 59 % (45-73) 05/31/22 06:15 Band Neutrophils % 2 % (3-5) L 05/31/22 06:15 Lymphocytes % (Manual) 37 % (20-40) 05/31/22 06:15 Monocytes % (Manual) 2 % (2-11) 05/31/22 06:15 Abs Neuts (Manual) 1.6 X10*3/uL (2.0-8.3) L 05/31/22 06:15 Lymphocytes # (Manual) 1.0 X10*3/uL (1.2-4.9) L 05/31/22 06:15 Monocytes # (Manual) 0.1 X10*3/uL (0.1-1.2) 05/31/22 06:15 Platelet Estimate NORMAL (NORMAL) 05/31/22 06:15 Large Platelets PRESENT 05/31/22 06:15 Plt Morphology Comment NOTED 05/31/22 06:15 RBC Morphology NORMAL 05/31/22 06:15 PT 11.9 SEC (10.0-13.1) 05/31/22 01:07 INR 1.0 (0.9-1.1) 05/31/22 01:07 APTT 26.4 SEC (26.0-36.4) 05/31/22 01:07 Sodium 142 mmol/L (135-145) 06/01/22 05:46 Potassium 3.6 mmol/L (3.3-5.1) 06/01/22 05:46 Chloride 110 mmol/L (96-108) H 06/01/22 05:46 Carbon Dioxide 26 mmol/L (22-29) 06/01/22 05:46 Anion Gap 10 (12-20) L 06/01/22 05:46 BUN 11 mg/dL (9-16) 06/01/22 05:46 Creatinine 0.76 mg/dL (0.5-1.4) 06/01/22 05:46 Estim Creat Clear Calc 88.2 06/01/22 05:46 Estimated GFR > 60 06/01/22 05:46 Random Glucose 98 mg/dL (60-115) 06/01/22 05:46 Lactic Acid 0.8 mmol/L (0.5-2.0) 05/31/22 03:30 Calcium 9.3 mg/dL (8.4-10.2) D 06/01/22 05:46 Total Bilirubin 0.2 mg/dL (0.0-1.0) 06/01/22 05:46 AST 24 U/L (5-31) 06/01/22 05:46 ALT 99 U/L (0-31) H 06/01/22 05:46 Alkaline Phosphatase 110 U/L (39-117) 06/01/22 05:46 C-Reactive Protein 12.39 mg/dL (< or = 0.50) H 05/31/22 06:15 Total Protein 5.6 g/dL (6.5-8.0) L 06/01/22 05:46 Albumin 3.4 g/dL (3.5-5.0) L 06/01/22 05:46 Beta HCG, Quant 3 mIU/mL 05/31/22 01:07 Urine Color Yellow 05/31/22 02:34 Urine Appearance Clear 05/31/22 02:34 Urine pH 5.5 (5.0-9.0) 05/31/22 02:34 Ur Specific [place] 1.010 (1.005-1.025) 05/31/22 02:34 Urine Protein 30 (1+) mg/dL (Neg-Trace) H 05/31/22 02:34 Urine Glucose (UA) Negative mg/dL (Negative) 05/31/22 02:34 Urine Ketones Negative mg/dL (Negative) 05/31/22 02:34 Urine Blood Negative (Negative) 05/31/22 02:34 Urine Nitrite Negative (Negative) 05/31/22 02:34 Ur Leukocyte Esterase Negative (Negative) 05/31/22 02:34 Urine RBC 0-2 /HPF (0-2) 05/31/22 02:34 Urine WBC 6-10 /HPF (0-5) H 05/31/22 02:34 Ur Squamous Epith Cells 0-2 /HPF (0-2) 05/31/22 02:34 Urine Bacteria None Seen (None Seen) 05/31/22 02:34 Hyaline Casts 3-5 /LPF (0-2) 05/31/22 02:34 Stool Occult Blood POSITIVE (NEGATIVE) 05/31/22 13:50 Stool Leukocytes, Qual FEW: < 2/OIF (NEGATIVE) 05/31/22 13:50 Stl C. cayetanensis PCR Not Detected (Not Detect.) 05/31/22 13:50 Stool Rotavirus A PCR Not Detected (Not Detect.) 05/31/22 13:50 Stl Adenov F 40/41 PCR Not Detected (Not Detect.) 05/31/22 13:50 Stool Astrovirus (PCR) Not Detected (Not Detect.) 05/31/22 13:50 Stool Campylobacter PCR Detected (Not Detect.) A 05/31/22 13:50 Stool Cryptosporidium PCR Not Detected (Not Detect.) 05/31/22 13:50 Stl Sh Tox Pr E STEC PCR Not Detected (Not Detect.) 05/31/22 13:50 Stool E coli O157 PCR Not applicable (Not Detect.) 05/31/22 13:50 Stl Enterotoxigenic E PCR Not Detected (Not Detect.) 05/31/22 13:50 Stool EPEC (PCR) Not Detected (Not Detect.) 05/31/22 13:50 Stool EAEC (PCR) Not Detected (Not Detect.) 05/31/22 13:50 Stl E. histolytica PCR Not Detected (Not Detect.) 05/31/22 13:50 Stool Giardia Lamblia PCR Not Detected (Not Detect.) 05/31/22 13:50 Stl P. shigelloides PCR Not Detected (Not Detect.) 05/31/22 13:50 Stool Salmonella PCR Not Detected (Not Detect.) 05/31/22 13:50 Stool Sapovirus (PCR) Not Detected (Not Detect.) 05/31/22 13:50 Stl Shigella/EIEC PCR Not Detected (Not Detect.) 05/31/22 13:50 St Y.enterocolitica PCR Not Detected (Not Detect.) 05/31/22 13:50 Stool Vibrio (PCR) Not Detected (Not Detect.) 05/31/22 13:50 Stl Vibrio cholerae PCR Not Detected (Not Detect.) 05/31/22 13:50 Stl Norovirus GI/GII PCR Not Detected (Not Detect.) 05/31/22 13:50 C. difficile Tox B Gene NEGATIVE (Negative) 05/31/22 13:50 Influenza Type A (PCR) NEGATIVE (Negative) 05/31/22 01:07 Influenza Type B (PCR) NEGATIVE (Negative) 05/31/22 01:07 RSV RNA Qual (PCR) NEGATIVE (Negative) 05/31/22 01:07 SARS-CoV-2 RNA (RT-PCR) NEGATIVE (Negative) 05/31/22 01:07 Impressions Abdomen/Pelvis CT 05/31/22 02:05 IMPRESSION: 1. Thick-walled appearance of the collapsed ascending, descending, and transverse colon with surrounding stranding suspicious for colitis. There may also be mild thickening of the sigmoid colon. 2. Status post cholecystectomy with mild biliary ductal dilatation which may be physiologic in this setting. Discharge Plan Discharge Anticipated Discharge Date/Time: 06/01/22 13:21 Patient Disposition: Home, Self-Care Discharge Diagnosis: Colitis due to Campylobacter infection Acute kidney injury Referrals: Rock Chambers MD [Primary Care Provider] - 1 Week Discharge Medications: New azithromycin 500 mg Tablet 500 mg PO Q24H Qty: 1 0RF Continued paroxetine HCl 10 mg tablet 10 mg PO DAILY minoxidil 2.5 mg tablet 1.25 mg PO DAILY Label Comments: Dose Change pantoprazole 40 mg tablet,delayed release (DR/EC) 40 mg PO DAILY cholecalciferol (vitamin D3) 50 mcg (2,000 unit) capsule 50 mcg PO DAILY calcium carb and citrate-vitD3 [Citracal-D3 Slow Release] 600 mg-12.5 mcg (500 unit) Tablet Extended Release 1 tab PO BEDTIME Bariatric Multivitamins 45 mg iron- 800 mcg-120 mcg Capsule 1 cap PO BEDTIME Discharge Orders: Discharge Order (Routine); Ordered 06/01/22 Ordered By: Jimi Ibarra Diet: Advance to usual diet Activity on Discharge: As tolerated Stand Alone Forms: Patient Portal Discharge page Care Plan Goals: recovery from Campylobacter infection Health Concerns: Colitis due to Campylobacter infection - take azithromycin 500 mg once on 06/02/22 Acute kidney injury - resolved Be careful with raw chicken as counseled.\ Please follow up with your primary care doctor within 1 week. Return to the hospital if you experience recurrent or worsening symptoms. Plan of Treatment: see below Assessment: See Discharge Summary. Patient Instructions: Infectious Colitis (ED), Colitis (ED)
[2022-06-03 11:42] LABS: HBS Num1 99.11 mIU/mL (0-7.99); HBc Num1 0.06 S/CO (0.00-0.79); HBsAGNum1 0.31 S/CO (0.00-0.99); Hepatitis B Core Antibody Nonreactive (Nonreactive); Hepatitis B Surface Antigen Negative (Negative); ~HepC Num1 0.09 S/CO (0.00-0.79); ~Hepatitis B Surface Antibody REACTIVE (Nonreactive); ~Hepatitis C Antibody Nonreactive (Nonreactive)
[2022-06-03 11:48] LABS: HIV AB/AG Nonreactive (Nonreactive); HIV Num 1 0.07 S/CO (0.00-0.99)
[2022-06-05 20:43] LABS: Calprotectin, Fecal 611 mcg/g
== END 2022-06-01 14:05 | disposition home or self-care (01) | DRG 248 ==
LOC: HO.ED 03:18 → HO.EDOVER 04:11 → HO.S3 12:55
PROVIDERS: Admitting Provider Internal Medicine; Emergency Provider Emergency Medicine; PCP Internal Medicine; Visit Provider Family Medicine
DX: A04.5 Campylobacter enteritis (principal); N17.9 Acute kidney failure, unspecified; E86.0 Dehydration; E87.6 Hypokalemia; Z20.822 Contact with and (suspected) exposure to COVID-19; Z98.84 Bariatric surgery status; Z79.899 Other long term (current) drug therapy
CPT/HCPCS: 0241U; 36415; 74176; 80048; 80053; 81001; 82272; 83605; 83993; 84702; 85007; 85025; 85027; 85610; 85730; 86140; 86704; 86706; 86803; 87040; 87086; 87340; 87389; 87493; 87507; 89055; 99218; 99285; J0696; J1956; J2930

== ENCOUNTER 2023-02-11 10:12 | Emergency (ER) | payer OTHER, SELFPAY ==
[2023-02-11 10:53] VITALS: BP 137/41; PULSE 58; RESP 20; TEMP 36.3; O2SAT 100; BMI 29.6
--- NOTE | 2023-02-11 11:17 | ED.ALLEREA ---
HPI - Allergic Reaction General Chief complaint: Allergic Reaction Stated complaint: Bee Sting r arm swelling Time Seen by Provider: 02/11/23 11:12 Source: patient Mode of arrival: ambulatory Limitations: no limitations History of Present Illness HPI narrative: 47-year-old female presents right arm pain, swelling, redness status post getting stung by a bee 3 days ago ( unsure if the stinger is still in) , redness, swelling has been worsening over the past 3 days. Patient did not know she was allergic to bees. Patient denies fevers, chills, headache, vision changes, dizziness, chest pain, shortness of breath, sore throat, difficulty swallowing or controlling secretions, nausea, vomiting, abdominal pain. Related Data Home Medications Medication Instructions Recorded Confirmed calcium carb,cit ER 600 mg-vit D3 1 tab PO BEDTIME 05/31/22 05/31/22 12.5 mcg (500 unit) tablet,ext.rel (Citracal-D3 Slow Release) cholecalciferol (vitamin D3) 50 50 mcg PO DAILY 05/31/22 05/31/22 mcg (2,000 unit) capsule minoxidil 2.5 mg tablet 1.25 mg PO DAILY 05/31/22 05/31/22 [id number] 45 mg-folic 1 cap PO BEDTIME 05/31/22 05/31/22 acid 800 mcg-vit K 120 mcg capsule (Bariatric Multivitamins) pantoprazole 40 mg tablet,delayed 40 mg PO DAILY 05/31/22 05/31/22 release paroxetine HCl 10 mg tablet 10 mg PO DAILY 05/31/22 05/31/22 Previous Rx's Medication Instructions Recorded azithromycin 500 mg tablet 500 mg PO Q24H #1 tab 06/01/22 diphenhydramine HCl 25 mg capsule 25 mg PO TID PRN allergic reaction 02/11/23 (Benadryl) #20 caps doxycycline hyclate 100 mg capsule 100 mg PO BID 10 days #20 caps 02/11/23 epinephrine 0.3 mg/0.3 mL 0.3 mg (0.3 mL) IM Q4H PRN 02/11/23 injection, auto-injector (EpiPen anaphylaxis #2 ea 2-Erik) prednisone 50 mg tablet 50 mg PO DAILY 5 days #5 tabs 02/11/23 Allergies Allergy/AdvReac Type Severity Reaction Status Date / Time No Known Allergies Allergy Verified 02/11/23 10:53 Review of Systems Review of Systems: Constitutional : No Weight loss, No Fever, No Chills, No Fatigue, No Malaise ENT/Mouth : No sore throat, No Rhinorrhea Eyes: No Eye Pain, No Swelling, No Redness Cardiovascular : No Chest Pain, No SOB, No Dyspnea on Exertion, No Orthopnea, No Edema, No Palpitations Respiratory : No Cough, No Sputum, No Wheezing Gastrointestinal : No Nausea, No Vomiting, No Diarrhea, No Constipation, No abdominal Pain, No Hematochezia, No Melena Genitourinary : No Dysuria, No Urinary Frequency, No Hematuria, Musculoskeletal : No joint pain, No Myalgias, No Joint Swelling Skin : No Skin Lesions, No rash, + redness to skin Neuro : No Weakness, No Numbness, No Dizziness, No Headache Psych : No Anxiety/Panic, No Depression All other systems reviewed and are negative Yes all other systems are reviewed and are negative [facility] Past Medical History Attestation statement: The following information was validated with the patient. Source: old records reviewed and nursing notes reviewed Medical History (Updated 02/11/23 @ 11:17 by WESTON Thompson) Acute diarrhea TU (acute kidney injury) Dehydration Acute hypokalemia Bright red rectal bleeding Colitis Surgical History (Updated 05/31/22 @ 06:12 by Craig Posadas MD) H/O abdominoplasty History of sleeve gastrectomy History of cholecystectomy H/O: hysterectomy Social History Social History (Updated 05/31/22 @ 06:12 by Craig Posadas MD) Household Members: Children and Friend(s) Housing: House Do you presently have visiting nurse or other home services: No Alcohol intake: current Patient Tobacco Use Status: Never used Tobacco Advance Directives: No service: No Current occupational status: employed Physical Exam ED Vital Signs: Vital Signs - 24 hr 02/11/23 10:53 Temperature 97.3 F Pulse Rate 58 Respiratory Rate 20 Blood Pressure 137/41 L Pulse Oximetry 100 Oxygen Delivery Method Room Air BMI result Body Mass Index 29.6 vss Appearance: Alert.? Oriented X3.? No acute distress.? Head: Normocephalic, atraumatic, no step-offs or deformities Eyes: Pupils equal, round and reactive to light.? CVS: Normal heart rate and rhythm.? Pulses normal.? Respiratory: No respiratory distress.? Breath sounds normal.? Abdomen: Soft and nontender.? Skin: Skin warm and dry.? Normal skin color.? Normal skin turgor.? + Redness, swelling, induration to right forearm region, area approximately 4 cm x 4 cm. Central induration. Extremities: No lower extremity edema.? No calf ttp. 5/5 strength to bilateral upper and lower extremities Neuro: Oriented X 3.? No motor deficit.? No sensory deficit. CN 2-12 intact Medical Decision Making Medical Decision Making [facility] Narrative: [id number] 47-year-old female presents status post bee sting 3 days ago with worsening redness, swelling, pain. Physical exam significant for Redness, swelling, induration to right forearm region, area approximately 4 cm x 4 cm. Central induration. likely allergic reaction. No signs of anaphylaxis or airway compromise. Some suspicion for overlying cellulitis. No signs of necrotizing infection, Ten, SJS. Plan at this time prednisone, Benadryl, doxycycline discharge home with allergy follow-up. Did instruct her on how to use an EpiPen just in case she gets stung again in the reaction is worse. Educated patient on diagnosis and treatment plan, answered all question, patient verbalizes understanding. At this time patient will be discharged home, advised to return with new or worsening symptoms. Educated on worrisome signs and symptoms and when to return. At this time I feel comfortable discharge home. Differential Diagnosis Differential Diagnoses: The differential diagnosis associated with the presentation includes likely allergic reaction. No signs of anaphylaxis or airway compromise. Some suspicion for overlying cellulitis. No signs of necrotizing infection, Ten, SJS. Admission/Observation Consideration of admission/observation: Escalation of care including admission/observation considered no indication Prescription Management I considered prescription management with: Antibiotic and Other (steroids ) Core Measures AMI core measures followed: Yes Measure exclusions: not indicated Critical Care Time Critical Care Time Critical Care Time: No Discharge Plan Discharge Clinical Impression: Allergic reaction, Bee sting Patient Disposition: Home, Self-Care Instructions: Insect Bite or Sting (ED), General Allergic Reaction (ED), Allergy Testing (ED) Additional Instructions: Take your medications as prescribed. If you were prescribed antibiotics today, it is important that you take your medication to their entirety, do not skip any doses, do not finish them early. Follow-up with your primary care provider this week. Return to the emergency department with new or worsening symptoms. Such as fevers, chills, chest pain, shortness of breath, nausea, vomiting, dizziness, headache, vision changes, lethargy In case of emergency call 911 An EpiPen was sent to pharmacy, please use this only in times of the emergency of her throat was closing, he cannot control your own secretions or any other signs of anaphylaxis as discussed. Please follow-up with Allergy doctor information below. Prescriptions: New diphenhydramine HCl [Benadryl] 25 mg capsule 25 mg PO TID PRN (Reason: allergic reaction) Qty: 20 0RF prednisone 50 mg tablet 50 mg PO DAILY 5 Days Qty: 5 0RF epinephrine [EpiPen 2-Erik] 0.3 mg/0.3 mL auto-injector 0.3 mg IM Q4H PRN (Reason: anaphylaxis) Qty: 2 0RF doxycycline hyclate 100 mg capsule 100 mg PO BID 10 Days Qty: 20 0RF No Action paroxetine HCl 10 mg tablet 10 mg PO DAILY minoxidil 2.5 mg tablet 1.25 mg PO DAILY Patient Comments: Dose Change pantoprazole 40 mg tablet,delayed release (DR/EC) 40 mg PO DAILY cholecalciferol (vitamin D3) 50 mcg (2,000 unit) capsule 50 mcg PO DAILY calcium carb and citrate-vitD3 [Citracal-D3 Slow Release] 600 mg-12.5 mcg (500 unit) Tablet Extended Release 1 tab PO BEDTIME Bariatric Multivitamins 45 mg iron- 800 mcg-120 mcg Capsule 1 cap PO BEDTIME azithromycin 500 mg Tablet 500 mg PO Q24H Qty: 1 0RF Referrals: [facility] [Outside] - 1 week Rock Chambers MD [Primary Care Provider] - 2 days Stand Alone Forms: Work/School Release
== END 2023-02-11 11:38 | disposition home or self-care (01) ==
PROVIDERS: Emergency Provider Emergency Medicine; PCP Internal Medicine
DX: T63.441A Toxic effect of venom of bees, accidental (unintentional), initial encounter (principal); Y92.9 Unspecified place or not applicable; M79.89 Other specified soft tissue disorders; Z79.899 Other long term (current) drug therapy
CPT/HCPCS: 99282; 99283

== ENCOUNTER 2023-09-04 21:41 | Emergency (ER) | payer OTHER, SELFPAY ==
[2023-09-04 21:48] VITALS: BP 162/87; PULSE 82; RESP 18; TEMP 36.8; O2SAT 100; BMI 27.4
[2023-09-04 22:07] LABS: MANUAL DIFF FLAG NO
[2023-09-04 22:09] LABS: Basophils Percent Auto 0.8 % (0-2); Eosinophils Absolute Auto 0.1 X10*3/uL (0.0-0.4); Eosinophils Percent Auto 1.4 % (0-4); Hematocrit 38.8 % (37.0-47.0); Hemoglobin 12.9 g/dl (12.0-16.0); Imm Gran Abs Auto 0.01 X10*3/uL (0.00-0.03); Imm Gran Pct Auto 0.2 % (0.0-0.4); Lymphocytes Absolute Auto 1.9 X10*3/uL (1.2-4.9); Lymphocytes Percent Auto 37.5 % (20-40); Mean Corpuscular HGB Conc 33.2 g/dl (31.0-35.0); Mean Corpuscular Hemoglobin 29.2 pg (27.0-33.0); Mean Corpuscular Volume 87.8 fL (80.0-98.0); Mean Platelet Volume 10.1 fL (9.4-12.3); Monocytes Absolute Auto 0.3 X10*3/uL (0.1-1.2); Monocytes Percent Auto 6.8 % (2-11); Neutrophils Absolute Auto 2.7 x10*3/uL (2.0-8.3); Neutrophils Percent Auto 53.3 % (45-73); Platelet Count 199 X10*3/uL (160-400); Red Blood Count 4.42 X10*6/uL (4.20-5.50); Red Cell Distribution Width 13.1 % (11.0-16.0)
--- NOTE | 2023-09-04 22:19 | PC.NURSE ---
pt a&ox4, respirations even and unlabored, pt reporting onset of mild abdominal cramping and diarrhea for 2 weeks. pt reports after every meal that she consumes she has episodes of diarrhea. pt reports overall not feeling well. pt denies n/v, and chest pain. 20G placed in right AC, labs obtained and sent to lab.
--- NOTE | 2023-09-04 22:27 | ED_ITS ---
HPI - Nausea/Vomiting/Diarrhea General Chief complaint: Nausea/Vomiting/Diarrhea Stated complaint: diarrhea x2 wks Time Seen by Provider: 09/04/23 22:22 Source: patient and old records reviewed Mode of arrival: ambulatory Limitations: no limitations History of Present Illness HPI Narrative: 47 yo female with PMH of anemia, gastric sleeve no prior issues or complications, allergies, here with c/o 2 weeks of loose stools every time she eats. No travel, no antibiotic use. The only new change was bariatric vitamin patch but the patient has been on it for 2 months. 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 She has had intermittent mild nausea but is eating. She tried to see PCP but could not get in. MD elicited complaint: diarrhea Onset (ago): week(s) (2) Description of diarrhea: mucus and watery Associated nausea: Yes Associated abdominal pain: No Severity: mild Exacerbating factors: eating Relieving factors: none Context: sick contacts Associated symptoms: loss of appetite and weakness Related Data Home Medications Medication Instructions Recorded Confirmed calcium carb,cit ER 600 mg-vit D3 1 tab PO BEDTIME 05/31/22 05/31/22 12.5 mcg (500 unit) tablet,ext.rel (Citracal-D3 Slow Release) cholecalciferol (vitamin D3) 50 50 mcg PO DAILY 05/31/22 05/31/22 mcg (2,000 unit) capsule minoxidil 2.5 mg tablet 1.25 mg PO DAILY 05/31/22 05/31/22 [id number] 45 mg-folic 1 cap PO BEDTIME 05/31/22 05/31/22 acid 800 mcg-vit K 120 mcg capsule (Bariatric Multivitamins) pantoprazole 40 mg tablet,delayed 40 mg PO DAILY 05/31/22 05/31/22 release paroxetine HCl 10 mg tablet 10 mg PO DAILY 05/31/22 05/31/22 Previous Rx's Medication Instructions Recorded azithromycin 500 mg tablet 500 mg PO Q24H #1 tab 06/01/22 diphenhydramine HCl 25 mg capsule 25 mg PO TID PRN allergic reaction 02/11/23 (Benadryl) #20 caps doxycycline hyclate 100 mg capsule 100 mg PO BID 10 days #20 caps 02/11/23 epinephrine 0.3 mg/0.3 mL 0.3 mg (0.3 mL) IM Q4H PRN 02/11/23 injection, auto-injector (EpiPen anaphylaxis #2 ea 2-Erik) prednisone 50 mg tablet 50 mg PO DAILY 5 days #5 tabs 02/11/23 Allergies Allergy/AdvReac Type Severity Reaction Status Date / Time No Known Allergies Allergy Verified 02/11/23 10:53 Review of Systems 2 Review of Systems: Constitutional : No Weight loss, No Fever, No Chills ENT/Mouth : No sore throat, No Rhinorrhea Eyes: No Swelling, No Redness Cardiovascular : No Chest Pain, No SOB, NoEdema Respiratory : No Cough, No Sputum, No Wheezing Gastrointestinal : pos Nausea, no Vomiting, positive Diarrhea, no abdominal Pain, No Hematochezia, No Melena Genitourinary : No Dysuria, No Urinary Frequency, No Hematuria, No Urgency Musculoskeletal : No joint pain, No Myalgias, No Joint Swelling Skin : No Skin Lesions, No rash Neuro : No Weakness, No Numbness, No Dizziness, No Headache Psych : No Anxiety/Panic, No Depression All other systems reviewed and are negative. Gastrointestinal: Gastrointestinal: Reports nausea PMFSH Past Medical History Attestation statement: The following information was validated with the patient. Source: old records reviewed Medical History Acute diarrhea TU (acute kidney injury) Dehydration Acute hypokalemia Bright red rectal bleeding Colitis Surgical History H/O abdominoplasty History of sleeve gastrectomy History of cholecystectomy H/O: hysterectomy Social History Social History Household Members: Children and Friend(s) Housing: House Do you presently have visiting nurse or other home services: No Alcohol intake: current Alcohol intake frequency: a few times a month Patient Tobacco Use Status: Never used Tobacco Smoked in Last 30 Days: No Use of substances other than those prescribed or required for medical reasons: No Advance Directives: No Advance Directives Information Provided: No Patient : No service: No Current occupational status: employed Physical Exam 2 Vital Signs: Vital Signs: Last Vital Signs Temp 96.8 F 09/04/23 23:08 Pulse 67 09/04/23 23:08 Resp 18 09/04/23 23:08 BP 116/70 09/04/23 23:08 Pulse Ox 99 09/04/23 23:08 O2 Del Method Room Air 09/04/23 23:08 BMI result Body Mass Index 27.4 Appearance: Alert. Oriented X3. No acute distress. Eyes: Pupils equal, round and reactive to light. ENT: Pharynx normal. Neck: Normal inspection. Neck supple. CVS: Normal heart rate and rhythm. Pulses normal. Respiratory: No respiratory distress. Breath sounds normal. Abdomen: Soft and nontender. Skin: Skin warm and dry. Normal skin color. Normal skin turgor. Extremities: No lower extremity edema. No calf ttp Neuro: Oriented X 3. No motor deficit. No sensory deficit. 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 Suspect more viral vs stool issue. She has had colitis in the past but it was painful this is different. Plan for stool studies she has no blood and the patient is immunocompetent. Differential Diagnosis Differential Diagnoses: The differential diagnosis associated with the presentation includes viral syndrome, food issue, no pain to suggest diverticulitis, colitis, SBO Admission/Observation Consideration of admission/observation: Escalation of care including admission/observation considered tolerating PO labs stable cannot provide stool sample here will send with outpatient supplies and slip Lab Data [facility] Lab Attestation statement: I reviewed the patient's lab results. 09/04/23 22:04 09/04/23 22:04 Labs: Lab Results 09/04/23 09/04/23 Range/Units 22:04 22:21 WBC 5.0 (4.8-10.8) X10*3/uL RBC 4.42 (4.20-5.50) X10*6/uL Hgb 12.9 (12.0-16.0) g/dl Hct 38.8 (37.0-47.0) % MCV 87.8 (80.0-98.0) fL MCH 29.2 (27.0-33.0) pg MCHC 33.2 (31.0-35.0) g/dl RDW 13.1 (11.0-16.0) % Plt Count 199 (160-400) X10*3/uL MPV 10.1 (9.4-12.3) fL Immature Gran % (Auto) 0.2 (0.0-0.4) % Neut % (Auto) 53.3 (45-73) % Lymph % (Auto) 37.5 (20-40) % [place] % (Auto) 6.8 (2-11) % Eos % (Auto) 1.4 (0-4) % Baso % (Auto) 0.8 (0-2) % Lymph # (Auto) 1.9 (1.2-4.9) X10*3/uL [place] # (Auto) 0.3 (0.1-1.2) X10*3/uL Eos # (Auto) 0.1 (0.0-0.4) X10*3/uL Baso # (Auto) 0.0 (0.0-0.2) X10*3/uL Abs Immat Gran (auto) 0.01 (0.00-0.03) X10*3/uL Absolute Neuts (auto) 2.7 (2.0-8.3) x10*3/uL Absolute Nucleated RBC 0.000 (0.0-0.012) X10*3/uL Nucleated RBC % (auto) 0.0 (0.0-0.2) /100WBC Sodium 143 (135-145) mmol/L Potassium 3.8 (3.3-5.1) mmol/L Chloride 108 (96-108) mmol/L Carbon Dioxide 30 H (22-29) mmol/L Anion Gap 9 L (12-20) BUN 15 (9-16) mg/dL Creatinine 0.80 (0.5-1.4) mg/dL Estim Creat Clear Calc 79.8 Estimated GFR > 60 Random Glucose 72 (60-115) mg/dL Calcium 8.9 (8.4-10.2) mg/dL Total Bilirubin 0.3 (0.0-1.0) mg/dL AST 26 (5-31) U/L ALT 27 (0-31) U/L Alkaline Phosphatase 104 (39-117) U/L Total Protein 6.7 (6.5-8.0) g/dL Albumin 3.9 (3.5-5.0) g/dL Influenza Type A (PCR) NEGATIVE (Negative) Influenza Type B (PCR) NEGATIVE (Negative) RSV RNA Qual (PCR) NEGATIVE (Negative) SARS-CoV-2 RNA (RT-PCR) NEGATIVE (Negative) External Record Review External record reviewed: Outpatient record Tests considered The following testing was considered but not selected: CT scan no pain normal labs not indicated Discharge Plan Discharge Clinical Impression: Acute diarrhea Patient Disposition: Home, Self-Care Instructions: Acute Diarrhea (ED) Additional Instructions: stay hydrated, eat a bland diet, return for worsening pain, fevers, bloody stools or any other concerns. you can follow up with your bariatric doctor as well. bring back stool study when possible to main entrance of lab Prescriptions: No Action paroxetine HCl 10 mg tablet 10 mg PO DAILY minoxidil 2.5 mg tablet 1.25 mg PO DAILY Patient Comments: Dose Change pantoprazole 40 mg tablet,delayed release (DR/EC) 40 mg PO DAILY cholecalciferol (vitamin D3) 50 mcg (2,000 unit) capsule 50 mcg PO DAILY calcium carb and citrate-vitD3 [Citracal-D3 Slow Release] 600 mg-12.5 mcg (500 unit) Tablet Extended Release 1 tab PO BEDTIME Bariatric Multivitamins 45 mg iron- 800 mcg-120 mcg Capsule 1 cap PO BEDTIME azithromycin 500 mg Tablet 500 mg PO Q24H Qty: 1 0RF diphenhydramine HCl [Benadryl] 25 mg capsule 25 mg PO TID PRN (Reason: allergic reaction) Qty: 20 0RF prednisone 50 mg tablet 50 mg PO DAILY 5 Days Qty: 5 0RF epinephrine [EpiPen 2-Erik] 0.3 mg/0.3 mL auto-injector 0.3 mg IM Q4H PRN (Reason: anaphylaxis) Qty: 2 0RF doxycycline hyclate 100 mg capsule 100 mg PO BID 10 Days Qty: 20 0RF
[2023-09-04 22:29] LABS: Alanine Aminotransferase 27 U/L (0-31); Albumin Level 3.9 g/dL (3.5-5.0); Alkaline Phosphatase 104 U/L (39-117); Anion Gap 9 (12-20); Aspartate Amino Transferase 26 U/L (5-31); Bilirubin Total 0.3 mg/dL (0.0-1.0); Blood Urea Nitrogen 15 mg/dL (9-16); Calcium 8.9 mg/dL (8.4-10.2); Carbon Dioxide 30 mmol/L (22-29); Chloride 108 mmol/L (96-108); Creatinine Clr Calc Pharmacy 79.8; Estimated Glomerular Filt Rate > 60; Glucose Random 72 mg/dL (60-115); Potassium 3.8 mmol/L (3.3-5.1); Sodium 143 mmol/L (135-145); Total Protein 6.7 g/dL (6.5-8.0)
[2023-09-04] MEDS: Lactated Ringers 1,000 ML 999 ML IV (22:40)
--- NOTE | 2023-09-04 22:43 | PC.NURSE ---
pt given apple juice and crackers at this time per provider request, attempting to obtain stool sample.
[2023-09-04 23:03] LABS: Influenza A PCR NEGATIVE (Negative); Influenza B PCR NEGATIVE (Negative); Resp Syncy Virus RNA Qual PCR NEGATIVE (Negative); SARS COV2 PCR INHOUSE NEGATIVE (Negative)
[2023-09-04 23:08] VITALS: BP 116/70; PULSE 67; RESP 18; TEMP 36; O2SAT 99
[2023-09-05 01:41] VITALS: BP 111/63; PULSE 77; RESP 16; TEMP 36.7; O2SAT 99
== END 2023-09-05 01:48 | disposition home or self-care (01) ==
PROVIDERS: Emergency Provider Emergency Medicine; PCP Internal Medicine
DX: R19.7 Diarrhea, unspecified (principal); Z98.84 Bariatric surgery status; Z03.818 Encounter for observation for suspected exposure to other biological agents ruled out
CPT/HCPCS: 0241U; 36415; 80053; 85025; 96360; 99284; J7120

== ENCOUNTER 2023-09-07 14:53 | Outpatient (REF) | payer SELFPAY ==
[2023-09-07 17:58] LABS: CDiff Gene PCR NEGATIVE (Negative)
== END 2023-09-07 14:54 | disposition home or self-care (01) ==
LOC: HO.LNP 14:53
PROVIDERS: Visit Provider Emergency Medicine
DX: R19.7 Diarrhea, unspecified (principal)
CPT/HCPCS: 87493; 87507

== ENCOUNTER → 2024-08-29 13:38 | Outpatient (BNVA) | payer SELFPAY | PROVIDERS: PCP Internal Medicine; Visit Provider Physician Assistant Medical | DX: Z02.79 Encounter for issue of other medical certificate (principal) ==